=== PATIENT | male | born 1955 | race Caucasian/White ===

== ENCOUNTER 2024-04-18 02:20 | Observation (INO) | payer MEDICARE ==
[~2024-04-18] VITALS: Ht 182.9 cm; Wt 82.1 kg
[~2024-04-18 02:20] MED LIST: LEVO750T68 PO; METO25 PO
--- NOTE | 2024-04-18 02:48 | ERN ---
ED Note History of Present Illness Stated Complaint: SOB Chief Complaint: Shortness of Breath Time Seen by MD: 02:38 Dictation: The patient is a 69-year-old male with no significant past medical history, presented to the emergency department with complaints of progressive dyspnea on exertion over the past 2 months, now worsening at rest and associated with orthopnea and nocturnal dyspnea. He was initially evaluated by primary care physician tess, who perform laboratory testing and an EKG, leading to referral to Cardiology. Due to worsening symptoms the patient has sought emergent evaluation. A chest x-ray was unremarkable, and a COVID-19 testing was negative. He was admitted for further evaluation and management and discharged a day prior to presentation this time During hospitalization, the patient was started on metoprolol 12.5 mg daily for tachycardia and extensive evaluation included CT angiogram ruled out pulmonary embolism. A 2D echo revealed mild left atrial and right ventricular dilation, mild concentric left ventricular hypertrophy, mild global hypokinesis of the left ventricle with an ejection fraction of 45- 50%, and stage I diastolic dysfunction with trace valvular regurgitation. A Lexiscan stress test reported as having possible abnormalities but to correlate clinically. Given persistent dyspnea, pulmonary function testing was performed on hospital day 3, revealing obstructive and possible restrictive lung disease. I was unable to find the PFT results to review. Pulmonology consultation confirmed a new diagnosis of COPD exacerbation, supported by CT findings of air trapping consistent with obstructive airway disease. The patient was managed with bronchodilator therapy and transitioned from 2 L nasal cannula to room air with adequate oxygen saturation. The patient was deemed stable for discharge on Levaquin and a rescue inhaler. He successfully completed a 6 minute walk test prior to discharge. He was instructed to follow up with pulmonology within 1-2 weeks for COPD management and with Cardiology in the same timeframe for further assessment of his mild left ventricular dysfunction. He came back as he was still very short of breath even with minimal exertion and unable to lay flat. At baseline before January patient was very active running marathons. He stated that he quit smoking 20 years ago but prior to that he s moked 1 pack per day for many years. He does not recall any significant infectious process as a trigger for his current progressive symptoms. He does consume alcohol daily at least 4-5 shots. Temperature 98 pulse 107 respirations 20 blood pressure 180/92 with a pulse oximetry of 97% on room air Allergies: Coded Allergies: No Known Allergies (Unverified Allergy, Unknown, 04/12/24) Home Meds Active Scripts Metoprolol Tartrate (Lopressor) 25 Mg Tab, 0.5 TAB PO BID for 30 Days, #30 TAB 0 Refills If the patient experienced any of the following symptoms dizziness or lightheadedness(especially when standing up), extreme weakness or fatigue, blurry vision, fainting or feeling like they may pass out, the medication should be discontinued. 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 Reviewed/Agreed w/PFSH: Yes Review of System Dictation Constitutional: Negative for fever,chills, and weight loss Eyes: Negative for injury, pain,redness, and discharge ENT: Negative for injury,pain or swelling Cardiovascular: Negative for chest pain, palpitations, and edema Respiratory: Positive for shortness of breath, cough with difficulty expectorating, and unclear about wheezing, Abdomen/GI: Negative for abdominal pain, nausea, vomiting, diarrhea, and constipation Back: Negative for injury and pain : Negative for injury, bleeding and discharge MS/Extremity: Negative for injury and deformity Skin: Negative for rash, and discoloration Neuro: Negative for headache, weakness, numbness, tingling, and seizure Psych: Negative for suicide ideation, homicidal ideation, and hallucinations Initial Vital Sign VS Vital Signs Date Time Temp Pulse Resp B/P (MAP) Pulse Ox O2 Delivery O2 Flow Rate FiO2 04/18/24 02:22 98.1 107 20 180/92 6 04/18/24 02:44 Room Air* 0 21 Physical Exam Dictation General: awake, alert, NAD very pleasant male Head/Face: Normocephalic, atraumatic Eyes: PERRL, EOMI, vision at baseline ENT: oral cavity clear, TMs clear, no signs of infection Neck: Trachea midline, supple, no nuchal rigidity Cardiovascular: RRR, normal S1/S2, No MRGs, no JVD Respiratory: Long expiratory phase with end expiratory wheeze with forced expiratory maneuver Abdomen: Soft, non-tender, non-distended, normal bowel sounds, no guarding or rebound. Skin: Warm, dry, normal turgor, no rash MS/Extremity: Pulses equal, no cyanosis, neurovascular intact, FROM Neuro: COAx4, GCS 15, strength 5/5, CN 2-12 intact, normal cerebellar exam, normal gait, Psych: Normal behavior, mood, and affect normal Extremities-trace edema without any palpable cords, Homans sign is negative Results (Laboratory/Radiology) Laboratory/Radiology Laboratory Tests Test 04/18/24 02:40 04/18/24 05:03 04/18/24 06:30 04/18/24 08:46 White Blood Count 11.2 K/uL (4.8-10.8) H Red Blood Count 5.27 MIL/uL (4.50-6.20) Hemoglobin 16.5 g/dL (14.0-18.0) Hematocrit 49.2 % (42-54) Mean Corpuscular Volume 93.4 fL (79-99) Mean Corpuscular Hemoglobin 31.3 pg (27.0-33.0) Mean Corpuscular Hemoglobin Concent 33.5 g/dL (32.0-36.0) Red Cell Distribution Width 12.1 % (11.0-15.5) Platelet Count 253 K/uL (130-400) Mean Platelet Volume 9.5 fL (7.5-10.5) Immature Granulocyte % (Auto) 0.3 % (0-1) Neutrophils (%) (Auto) 76.7 % (40.0-77.0) Lymphocytes (%) (Auto) 11.8 % (21.0-51.0) L Monocytes (%) (Auto) 8.2 % (3.0-13.0) Eosinophils (%) (Auto) 2.5 % (0.0-8.0) Basophils (%) (Auto) 0.5 % (0.0-5.0) Neutrophils # (Auto) 8.6 K/uL (1.8-7.7) H Lymphocytes # (Auto) 1.3 K/uL (1.0-4.8) Monocytes # (Auto) 0.9 K/uL (0.1-1.0) Eosinophils # (Auto) 0.28 K/uL (0.00-0.70) Basophils # (Auto) 0.06 K/uL (0.00-0.20) Absolute Immature Granulocyte (auto 0.03 K/uL (0-1) Nucleated Red Blood Cells 0.0 % (0.0-0.19) Prothrombin Time 10.8 SEC (9.6-11.6) Prothromb Time International Ratio 0.96 (0.85-1.15) Activated Partial Thromboplast Time 28.9 SEC (26.3-35.5) Sodium Level 136 mmol/L (136-145) Potassium Level 4.2 mmol/L (3.5-5.1) Chloride Level 101 mmol/L (101-111) Carbon Dioxide Level 32 mmol/L (21-32) Blood Urea Nitrogen 16 mg/dL (7-18) Creatinine 1.1 mg/dL (0.5-1.3) Glomerular Filtration Rate Calc 72 mL/min (>90) Random Glucose 107 mg/dL (70-105) H Total Calcium 9.0 mg/dL (8.5-10.1) Magnesium Level 1.80 mg/dL (1.80-2.40) B-Type Natriuretic Peptide 26 pg/mL (0-100) Blood Gas Specimen Type Arterial Arterial Blood pH 7.420 (7.350-7.450) Arterial Blood Partial Pressure CO2 40 mmHg (35-48) Arterial Blood Partial Pressure O2 70.4 mmHg (83.0-108.0) L Arterial Blood HCO3 25.1 mmol/L (21.0-28.0) Arterial Blood Oxygen Saturation 94.5 % (94.0-98.0) Arterial Blood Base Excess 0.7 mmol/L (-2.0-3.0) Blood Gas Temperature 37.0 CELSIUS (35.5-37.0) Blood Gas Flow-by 3.00 L/min (0.00-15.00) Blood Gas Vent Mode NC,32 (ROOM AIR) FiO2 32.0 % Blood Gas Specimen Comment RB,RN MANY Influenza Type A Antigen Negative For Type A Influenza Type B Antigen Negative For Type B SARS-CoV-2, RNA, NAAT NEGATIVE SARS CoV-2 Whole Blood Glucose 194 MG/DL (70-110) H Test 04/18/24 11:34 04/18/24 16:37 Whole Blood Glucose 174 MG/DL (70-110) H 185 MG/DL (70-110) H Labs Reviewed?: Yes EKG Comment: Twelve lead EKG done on 04/18/2024 at 3:07 a.m. showed a heart rate of 106, NV interval 148, QRS 91, QT/QTC 333/443 Impression sinus tachycardia with occasional PVCs and left atrial enlargement. No acute ST-T elevations noted. Interpreted by Dr. Garcia ED Course ED Course Orders Procedure Category Date Status Time Cbc With Differential LAB 04/18/24 Complete 02:23 Basic Metabolic Panel LAB 04/18/24 Complete 02:23 B-Type Natriuretic LAB 04/18/24 Complete Peptide 02:23 Pt And Ptt LAB 04/18/24 Complete 02:23 Chest 1vw RAD 04/18/24 Resulted 02:23 12 Lead Ekg Tracing- EKG 04/18/24 Complete Technical 02:47 Magnesium LAB 04/18/24 Complete 02:40 Methylprednisolone PHA 04/18/24 Complete Succ 125mg (Solu-Medr 04:00 [id number]% 4ml PHA 04/18/24 Complete (Mucomyst 10% 4ml) 04:00 Ipratropium/Albuterol PHA 04/18/24 Complete Neb (Duoneb) 04:00 Edm Admit Bridge Order ADM 04/18/24 Transmitted 04:39 Admit Orders ADM 04/18/24 Transmitted 04:40 Arterial Blood Gas RT 04/18/24 Transmitted 04:42 Arterial Blood Gas LAB 04/18/24 Complete 05:03 Influenza Type A & B, LAB 04/18/24 Complete Rapid 06:08 Covid Rna Naat LAB 04/18/24 Complete 06:08 Vital Signs Every 4 CPOE 04/18/24 Transmitted Hours 06:37 I&O Q Shift CPOE 04/18/24 Transmitted 06:37 Activity: Ambulate W/ CPOE 04/18/24 Transmitted Assist 06:37 Heart Healthy Diet DIET 04/18/24 Transmitted Breakfast O2 Order RT 04/18/24 Transmitted 06:37 Albuterol 0.083% PHA 04/18/24 In Process 2.5mg/3ml (Proventil 12:00 Ipratropium 0.5 PHA 04/18/24 In Process Mg/2.5 Ml Inh 12:00 Cbc Without LAB 04/19/24 Verified Differential 04:00 Basic Metabolic Panel LAB 04/19/24 Verified 04:00 Magnesium LAB 04/19/24 Verified 04:00 Phosphorus LAB 04/19/24 Verified 04:00 Enoxaparin Sodium 40 PHA 04/18/24 In Process Mg/0.4 Ml (Lovenox) 09:00 Aspirin 81mg Chew Tab PHA 04/18/24 In Process (Aspirin 81mg Chew 09:00 Acetaminophen 325 Tab PHA 04/18/24 In Process (Tylenol 325mg Tab 07:00 Acetaminophen 650mg PHA 04/18/24 In Process Supp (Tylenol 650mg 07:00 Lactulose 20 Gm/30 Ml PHA 04/18/24 In Process Udcup (Constulose 07:00 Docusate Sodium 100 PHA 04/18/24 In Process Mg Cap (Colace 100mg 07:00 Temazepam 15 Mg Cap PHA 04/18/24 In Process (Restoril 15 Mg Cap) 07:00 Ondansetron 4mg Inj PHA 04/18/24 In Process (Zofran 4mg Inj) 07:00 Labetalol 20mg Syg PHA 04/18/24 In Process (Trandate 20mg Syg) 07:00 Elevate Hob At 30 CPOE 04/18/24 Transmitted Degrees 06:37 Telemetry Monitoring CPOE 04/18/24 Transmitted 06:37 Initiate LUPE 04/18/24 In Process Hyperglycemia Protoco 06:37 Insulin Regular, PHA 04/18/24 In Process Human 3ml (Humulin R 07:30 Methylprednisolone PHA 04/18/24 In Process Succ 125mg (Solu-Medr 12:00 Cbc With Differential LAB 04/19/24 Verified 04:00 Comprehensive LAB 04/19/24 Verified Metabolic Panel 04:00 Famotidine 20mg Vial PHA 04/18/24 In Process (Pepcid 20mg Vial) 09:00 Atorvastatin 40mg PHA 04/18/24 In Process (Lipitor 40mg) 21:00 Metoprolol Tartrate PHA 04/18/24 In Process 25 Mg Tab (Lopressor 09:00 Current Medications Medications (Trade) Dose Ordered Sig/Elvis Route PRN Reason Start Time Stop Time Status Last Admin Dose Admin Acetylcysteine (MUComyst 10% 4ML) 400mg = 4ml ONCE ONCE IH 04/18/24 04:00 04/18/24 04:01 DC 04/18/24 03:56 Albuterol (DUOneb) 1 UDVIAL ONCE ONCE IH 04/18/24 04:00 04/18/24 04:01 DC 04/18/24 03:55 Methylprednisolone Sodium Succinate (Solu-medROL 125MG) 125 mg ONCE ONCE IVP 04/18/24 04:00 04/18/24 04:01 DC 04/18/24 03:40 Vital Signs Date Time Temp Pulse Resp B/P (MAP) Pulse Ox O2 Delivery O2 Flow Rate FiO2 04/18/24 18:10 80 16 134/88 94 Room Air* 0 04/18/24 16:06 96 16 155/99 93 Room Air* 0 04/18/24 13:23 90 18 142/98 94 Room Air* 0 04/18/24 11:40 88 04/18/24 10:37 86 14 147/96 95 Nasal Cannula* 05 1404/18/24 08:11 98.2 84 20 145/94 95 Nasal Cannula* 05 1404/18/24 07:50 97 20 N/A Room Air 04/18/24 05:16 98.6 79 16 154/95 94 Nasal Cannula* 05 1404/18/24 03:56 109 22 04/18/24 03:23 101 17 151/94 88 Room Air* 0 04/18/24 02:44 105 18 147/102 93 Room Air* 0 04/18/24 02:22 98.1 107 20 180/92 6 We will perform diagnostic labs, advanced imaging and administer medications according to the patient's complaint. Once the results are available, will review and personally interpreted the labs to rule out any acute life- threatening emergency the trach require immediate intervention and treatment. I will then re-evaluate the patient after treatment and diagnostic exams have return to determine whether the patient requires any further testing, can safely be discharged home or need further admission to hospital for additional treatment and evaluation. Reviewed labs CBC showed a white count of 11.2 hemoglobin 16.5 BNP 7 showed a BUN and creatinine of 16 and 1.1 brain natriuretic peptide is 26 Chest x-ray showed hyperinflation with a bilateral prominent interstitial markings. I have also reviewed the CT scan of the chest that was done recently which showed patchy ground-glass opacities bilaterally. Lexiscan stress test was also abnormal . Given the persistent symptoms of shortness of breath even with minimal exertion and PND, I recommended that he get readmitted to the hospital for further evaluation including A. Cardiac-may need to consider left heart catheterization. B. from pulmonary standpoint, may benefit from a trial of steroids, Mucomyst lavage with Acapella and consideration for bronch. Patient is agreeable 4:46 a.m. patient accepted by [facility] mid-level provider for the hospitalist group- Dr. Aubrey Saenz Medical Decision Making MDM MDM: Differential diagnosis: Bronchiolitis obliterans, BOOP, chronic microaspiration with history of daily alcohol intake, interstitial lung disease, untreated COPD- no PFTs available for me to review. The other possibility would be superimposed coronary artery disease that may need additional testing including left heart catheterization Rationale: Tests considered and ordered secondary to shared decision making include: labs, ECG and radiology Previous outside records reviewed: Old ER visits. Risk of complication and/or morbidity or mortality of patient management: None Medications-Per medication reconciliation Need for hospitalization: Patient does meet criteria for hospitalization. Need for emergency major/minor surgery: No There are no social concerns with this patient. Prescription drug management Prescriptions will include symptomatic care Patient's prior external medical records from other ER visits were reviewed by me as indicated. Prior testing and results from previous visits were reviewed. Prior tests were taken into account with medical decision making and resource utilization, independent historian/historians were used to obtain complete medical history. I independently interpreted the test that were performed, results were reviewed by me and considered findings on radiology if ordered. Medical management and examination interpretation discussions were had by me with other qualified healthcare professionals as indicated for the patient's care. 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 I pers onally reviewed and interpreted all the diagnostic exams performed in the ER today. The patient will be admitted to the hospital for further treatment and evaluation. Disposition-admit to facility Condition-stable/guarded Course-uncertain at this time Pain status-decreased Assessment-exam unchanged Admission Certification- I certify that the patients status is appropriate and is based on my best clinical judgment and the patient's condition as documented in the medical records Referrals: JOHN MITCHELL (PCP) CHRISTA GARCIA MD Apr 18, 2024 02:48
[2024-04-18 02:52] LABS: BASOPHILS # (AUTO) 0.06 K/uL (0.00-0.20); BASOPHILS % (AUTO) 0.5 % (0.0-5.0); EOSINOPHILS # (AUTO) 0.28 K/uL (0.00-0.70); EOSINOPHILS % (AUTO) 2.5 % (0.0-8.0); HEMATOCRIT 49.2 % (42-54); IMMATURE GRANULOCYTE ABSOLUTE 0.03 K/uL (0-1); LYMPHOCYTES # (AUTO) 1.3 K/uL (1.0-4.8); LYMPHOCYTES % (AUTO) 11.8 % (21.0-51.0); MEAN CORPUSCULAR HEMOGLOBIN 31.3 pg (27.0-33.0); MEAN CORPUSCULAR HGB CONC 33.5 g/dL (32.0-36.0); MEAN CORPUSCULAR VOLUME 93.4 fL (79-99); MONOCYTES # (AUTO) 0.9 K/uL (0.1-1.0); MONOCYTES % (AUTO) 8.2 % (3.0-13.0); NEUTROPHILS # (AUTO) 8.6 K/uL (1.8-7.7); NEUTROPHILS % (AUTO) 76.7 % (40.0-77.0); PLATELET COUNT (AUTO) 253 K/uL (130-400); RED BLOOD CELL COUNT(AUTO) 5.27 MIL/uL (4.50-6.20); RED CELL DISTRIBUTION WIDTH 12.1 % (11.0-15.5); WHITE BLOOD COUNT (AUTO) 11.2 K/uL (4.8-10.8)
[2024-04-18] MEDS ORDERED: METO25TA6 PO (02:58)
[2024-04-18] MEDS ORDERED: LEVO750T90 PO (02:58)
[2024-04-18 02:59] LABS: CREATININE 1.1 mg/dL (0.5-1.3); POTASSIUM 4.2 mmol/L (3.5-5.1)
[2024-04-18 03:02] LABS: INR 0.96 (0.85-1.15); PROTHROMBIN TIME 10.8 SEC (9.6-11.6)
[2024-04-18 03:04] LABS: PARTIAL THROMBOPLASTIN TIME 28.9 SEC (26.3-35.5)
[2024-04-18 03:17] LABS: B-TYPE NATRIURETIC PEPTIDE 26 pg/mL (0-100)
[2024-04-18] MEDS: Solu-medROL 125MG VIAL IVP ONE (03:40)
[2024-04-18] MEDS: IpraTROPium/alBUTERol SULFATE 3 ML SOLUTION IH ONE (03:55)
[2024-04-18 03:56] VITALS: PULSE 109; RESP 22
[2024-04-18] MEDS: acetylCYSTeine10% 4ML VIAL IH ONE (03:56)
[2024-04-18 05:04] LABS: ABG BASE EXCESS 0.7 mmol/L (-2.0-3.0); ABG HCO3 25.1 mmol/L (21.0-28.0); ABG OXYGEN SATURATION 94.5 % (94.0-98.0); ABG PCO2 40 mmHg (35-48); DEVICE COMMENT RB,RN MANY; PO2, ARTERIAL BG 70.4 mmHg (83.0-108.0); VENT MODE, BG NC,32 (ROOM AIR)
--- NOTE | 2024-04-18 05:31 | HP ---
[facility] HISTORY AND PHYSICAL Date of Service: Apr 18, 2024 Time of Service: 05:31 JOHN MITCHELL (PCP) Supervising physicians: Dr. Saenz and Dr. Trina Crowley HISTORY OF PRESENT ILLNESS: Mr. Dixon 69-year-old male with no significant past medical history of COPD, hypotension, sinusitis, tachycardia, elevated D-dimers, smoker, EtOH who presented to the emergency department for evaluation of progressive dyspnea on exertion over the past 2 months, now worsening at rest and associated with orthopnea and nocturnal dyspnea. He was initially evaluated by primary care physician tess, who perform laboratory testing and an EKG, leading to referral to Cardiology. Due to worsening symptoms the patient has sought emergent evaluation. On arrival, he was hemodynamically stable aside from tachycardia with a heart rate of 114 and hypertension with a blood pressure of 158/112, with an oxygen saturation of 93% on room air. A chest x-ray was unremarkable, and a COVID-19 testing was negative. He was admitted for further evaluation and management. During prior hospitalization, the patient was started on metoprolol 12.5 mg daily for tachycardia and received symptomatic treatment for pain, fever, cough, nausea, and vomiting as needed. A CT angiogram ruled out pulmonary embolism. A 2D echo revealed mild left atrial and right ventricular dilation, mild concentric left ventricular hypertrophy, mild global hypokinesis of the left ventricle with an ejection fraction of 45-50%, and stage I diastolic dysfunction with trace valvular regurgitation. A Lexiscan stress test was unremarkable. Given persistent dyspnea, pulmonary function testing was performed on hospital day 3, revealing obstructive and possible restrictive lung disease. Pulmonology consultation confirmed a new diagnosis of COPD exacerbation, supported by CT findings of air trapping consistent with obstructive airway disease. The patient was managed with bronchodilator therapy and transitioned from 2 L nasal cannula to room air with adequate oxygen saturation. The patient was deemed stable for discharge on Levaquin and a rescue inhaler. He successfully completed a 6 minute walk test prior to discharge. He was instructed to follow up with pulmonology within 1-2 weeks for COPD management and with Cardiology in the same timeframe for further assessment of his mild left ventricular dysfunction. EKG done on 04/18/2024 at 3:07 a.m. showed a heart rate of 106, Impression sinus tachycardia with occasional PVCs and left atrial enlargement. No acute ST-T elevations noted. labs CBC showed a white count of 11.2 hemoglobin 16.5 BNP 7 showed a BUN and creatinine of 16 and 1.1 brain natriuretic peptide is 26. Chest x-ray showed hyperinflation with a bilateral prominent interstitial markings. CT scan of the chest that was done recently which showed patchy ground-glass opacities bilaterally. Lexiscan stress test was also abnormal. ED provider request patient be admitted with the diagnosis of bronchiolitis obliterans organizing pneumonia, COPD, Ground glass opacity present on imaging of lung. Assess the patient at bedside in room number ED 20. Patient was asleep, breathing was even, unlabored, in no distress. I informed patient of labs, diagnostics, plan of care. He verbalizes understanding and is in agreement with the plan. Plan and assessment are listed below. REVIEW OF SYSTEMS 12-point ROS reviewed with the patient. All pertinent positives mentioned above. Otherwise negative, noncontributory, or non-pertinent. Past Medical History: COPD, Hypertension, Sinusitis, tachycardia, elevated D- dimer Surgical History: None Family History: Negative Social History: Smokers, ETOH Coded Allergies: No Known Allergies (Unverified Allergy, Unknown, 04/12/24) PHYSICAL EXAM GENERAL APPEARANCE: The patient is awake, alert, and oriented, in no acute cardiopulmonary distress. NEUROLOGICAL: Cranial nerves II-XII grossly intact. Motor is 5/5 in bilateral upper and lower extremities proximal to distal. No sensory deficits. HEENT: Face is symmetric. Pupils are equal and reactive. Extraocular movements are intact. NECK: Supple. No JVD. No thyromegaly. No submental, submandibular, pre- /postauricular, occipital or supraclavicular lymphadenopathy. CHEST: Normal chest expansion. No Telemetry. LUNGS: Diminished better. Absence of any rales, rhonchi or any wheezing. CARDIOVASCULAR: Regular. S1 and S2 normal. No appreciable rubs, murmurs or gallops. ABDOMEN: Soft, nontender, and nondistended. There is no rebound, voluntary guarding, or rigidity. : Deferred. No Aguilar. EXTREMITIES: Non-edematous and not cyanotic. No clubbing. Good capillary ref ill. SKIN: No skin breakdown. Vital Sign (Last 24 Hours) 04/18/24 05:16 Temp 98.6 Pulse 79 Resp 16 B/P (MAP) 154/95 Pulse Ox 94 O2 Delivery Nasal Cannula* O2 Flow Rate 2 FiO2 28 LABS: Laboratory: Test 04/18/24 05:03 04/18/24 02:40 Range/Units Blood Gas Specimen Type Arterial Arterial Blood pH 7.420 7.350-7.450 Arterial Blood Partial Pressure CO2 40 35-48 mmHg Arterial Blood Partial Pressure O2 70.4 L 83.0-108.0 mmHg Arterial Blood HCO3 25.1 21.0-28.0 mmol/L Arterial Blood Oxygen Saturation 94.5 94.0-98.0 % Arterial Blood Base Excess 0.7 -2.0-3.0 mmol/L Blood Gas Temperature 37.0 35.5-37.0 CELSIUS Blood Gas Flow-by 3.00 0.00-15.00 L/min Blood Gas Vent Mode NC,32 ROOM AIR FiO2 32.0 % Blood Gas Specimen Comment RB,RN MANY White Blood Count 11.2 H 4.8-10.8 K/uL Red Blood Count 5.27 4.50-6.20 MIL/uL Hemoglobin 16.5 14.0-18.0 g/dL Hematocrit 49.2 42-54 % Mean Corpuscular Volume 93.4 79-99 fL Mean Corpuscular Hemoglobin 31.3 27.0-33.0 pg Mean Corpuscular Hemoglobin Concent 33.5 32.0-36.0 g/dL Red Cell Distribution Width 12.1 11.0-15.5 % Platelet Count 253 130-400 K/uL Mean Platelet Volume 9.5 7.5-10.5 fL Immature Granulocyte % (Auto) 0.3 0-1 % Neutrophils (%) (Auto) 76.7 40.0-77.0 % Lymphocytes (%) (Auto) 11.8 L 21.0-51.0 % Monocytes (%) (Auto) 8.2 3.0-13.0 % Eosinophils (%) (Auto) 2.5 0.0-8.0 % Basophils (%) (Auto) 0.5 0.0-5.0 % Neutrophils # (Auto) 8.6 H 1.8-7.7 K/uL Lymphocytes # (Auto) 1.3 1.0-4.8 K/uL Monocytes # (Auto) 0.9 0.1-1.0 K/uL Eosinophils # (Auto) 0.28 0.00-0.70 K/uL Basophils # (Auto) 0.06 0.00-0.20 K/uL Absolute Immature Granulocyte (auto 0.03 0-1 K/uL Nucleated Red Blood Cells 0.0 0.0-0.19 % Prothrombin Time 10.8 9.6-11.6 SEC Prothromb Time International Ratio 0.96 0.85-1.15 Activated Partial Thromboplast Time 28.9 26.3-35.5 SEC Sodium Level 136 136-145 mmol/L Potassium Level 4.2 3.5-5.1 mmol/L Chloride Level 101 101-111 mmol/L Carbon Dioxide Level 32 21-32 mmol/L Blood Urea Nitrogen 16 7-18 mg/dL Creatinine 1.1 0.5-1.3 mg/dL Glomerular Filtration Rate Calc 72 >90 mL/min Random Glucose 107 H 70-105 mg/dL Total Calcium 9.0 8.5-10.1 mg/dL B-Type Natriuretic Peptide 26 0-100 pg/mL DIAGNOSTICS / RADIOLOGY: [ ] ASSESSMENT: Acute hypoxemic respiratory failure, POA COPD with acute exacerbation, POA Leukocytosis Hyperglycemia Tachycardia Uncontrolled hypertension Chronic problem list: COPD, hypertension, sinusitis, tachycardia, elevated D- dimer PLAN: Admit to medical floor with telemetry monitoring. Monitor respiratory status closely. Continue oxygen therapy as needed. Titrate oxygen p.r.n. to keep SpO2 equal to greater than 92%. Albuterol and Atrovent scheduled. RT to provide IS and education on use. Robitussin DM as needed. Solu-Medrol IV daily. Continue antibiotic therapy: Doxycycline IV and Rocephin IV. P.r.n. medications for: Pain management, fever, hypertension, nausea, vomiting, constipation Blood pressure checks every4 hours and as needed. Reconcile home medication: Metoprolol 25 mg p.o. daily. Hold home medication levofloxacin. Monitor renal and liver function. Monitor electrolytes and treat accordingly. A.m. labs: CBC, BNP, Mag, phos, TSH, A1c. GI and DVT prophylaxis: Pepcid and Lovenox. MARTIN JACOBP Apr 18, 2024 05:31
[2024-04-18] MEDS ORDERED: ondanSETRON 4MG INJ IVP PRN (07:00)
[2024-04-18] MEDS ORDERED: acetaMINOPHEN 325 MG TAB PO PRN (07:00)
[2024-04-18] MEDS ORDERED: acetaMINOPHEN 650 MG SUPPOSITORY RC PRN (07:00)
[2024-04-18] MEDS ORDERED: LAbetaLOL 20MG SYG IV PRN (07:00)
[2024-04-18] MEDS ORDERED: LACTULOSE 20 GM/30 ML UDCUP PO PRN (07:00)
[2024-04-18] MEDS ORDERED: TEMAZepam 15 MG CAPSULE PO PRN (07:00)
[2024-04-18] MEDS ORDERED: doCUSate SODIUM 100 MG CAP PO PRN (07:00)
[2024-04-18 07:04] LABS: SARS-CoV-2, RNA, NAAT NEGATIVE SARS CoV-2 (NEGATIVE)
[2024-04-18 07:05] LABS: MAGNESIUM 1.8 mg/dL (1.80-2.40)
[2024-04-18 07:12] LABS: INFLUENZA TYPE A Negative For Type A (NEGATIVE); INFLUENZA TYPE B Negative For Type B (NEGATIVE)
[2024-04-18 07:50] VITALS: PULSE 97; RESP 20; O2SAT 95
--- NOTE | 2024-04-18 08:28 | HMCIMG ---
Exam Type: CHEST 1VW Clinical Information: SOB Comparison: None Findings: The lungs are clear of infiltrates. The heart is normal in size. The bony and soft tissue structures of the chest are unremarkable. Impression: Clear lungs.
[2024-04-18] MEDS: ENOXAPARIN SODIUM 40 MG/0.4 ML SYRINGE SQ SCH (08:41)
[2024-04-18] MEDS: ASPIRIN 81MG CHEW TAB PO SCH (08:41)
[2024-04-18] MEDS: INSULIN humuLIN R 100 UNIT/ML 3ML SQ SCH (08:50)
[2024-04-18] MEDS: FAMOTIDINE 20MG VIAL IV SCH (08:56)
[2024-04-18] MEDS: metoPROLOL tartRATE 25 MG TAB PO SCH (08:56)
--- NOTE | 2024-04-18 09:22 | EKG ---
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
--- NOTE | 2024-04-18 11:20 | NUR ---
PATIENT UP AD LYNETTE WITH NO SIGNS OF RISKS FOR FALL. REQUESTED TO [facility].
[2024-04-18] MEDS: Solu-medROL 125MG VIAL IVP SCH (11:30)
[2024-04-18 11:40] VITALS: PULSE 88; RESP 22
[2024-04-18] MEDS: ALBUTEROL 0.083% 2.5 MG/3 ML INH IH SCH (11:51)
[2024-04-18] MEDS: IpraTROPium 0.5 MG/2.5 ML INH IH SCH (11:51)
[2024-04-18 19:58] VITALS: PULSE 95; RESP 20; O2SAT 95
[2024-04-18] MEDS: atorVAStatin 40 MG TABLET PO SCH (21:13)
[2024-04-18 23:58] VITALS: PULSE 89; RESP 18
[2024-04-19] VITALS (9 sets, daily range): BP systolic 117–152; BP diastolic 60–101; PULSE 84–115; RESP 16–22; TEMP 97.4–98.5; O2SAT 92–95
[2024-04-19 05:00] LABS: BASOPHILS # (AUTO) 0.01 K/uL (0.00-0.20); BASOPHILS % (AUTO) 0.1 % (0.0-5.0); HEMATOCRIT 44.1 % (42-54); IMMATURE GRANULOCYTE ABSOLUTE 0.06 K/uL (0-1); LYMPHOCYTES # (AUTO) 0.8 K/uL (1.0-4.8); LYMPHOCYTES % (AUTO) 6.4 % (21.0-51.0); MEAN CORPUSCULAR HEMOGLOBIN 30.4 pg (27.0-33.0); MEAN CORPUSCULAR HGB CONC 32.9 g/dL (32.0-36.0); MEAN CORPUSCULAR VOLUME 92.5 fL (79-99); MONOCYTES # (AUTO) 0.3 K/uL (0.1-1.0); MONOCYTES % (AUTO) 2.3 % (3.0-13.0); NEUTROPHILS % (AUTO) 90.7 % (40.0-77.0); PLATELET COUNT (AUTO) 256 K/uL (130-400); RED BLOOD CELL COUNT(AUTO) 4.77 MIL/uL (4.50-6.20); WHITE BLOOD COUNT (AUTO) 13.2 K/uL (4.8-10.8)
[2024-04-19 05:26] LABS: ALBUMIN 2.8 g/dL (3.5-5.0); BILIRUBIN,TOTAL 0.3 mg/dL (0.2-1.0); CREATININE 1.1 mg/dL (0.5-1.3); MAGNESIUM 1.8 mg/dL (1.80-2.40); PHOSPHORUS 2.7 mg/dL (2.5-4.9); POTASSIUM 4.3 mmol/L (3.5-5.1); TOTAL PROTEIN, SERUM 7.5 g/dL (6.0-8.3)
[2024-04-19] MEDS ORDERED: MAGNESIUM 2GM PREMIX 50ML 50 ML IV PRN (09:30)
[2024-04-19] MEDS: Solu-medROL 40MG VIAL IVP SCH (12:27)
--- NOTE | 2024-04-19 17:19 | DS ---
Discharge Summary Hospital Course Summary: Mr. Dixon 69-year-old male with no significant past medical history of COPD, hypotension, sinusitis, tachycardia, elevated D-dimers, smoker, EtOH who presented to the emergency department for evaluation of progressive dyspnea on exertion over the past 2 months, now worsening at rest and associated with o rthopnea and nocturnal dyspnea. He was initially evaluated by primary care physician tess, who perform laboratory testing and an EKG, leading to referral to Cardiology. Due to worsening symptoms the patient has sought emergent evaluation. On arrival, he was hemodynamically stable aside from tachycardia with a heart rate of 114 and hypertension with a blood pressure of 158/112, with an oxygen saturation of 93% on room air. A chest x-ray was unremarkable, and a COVID-19 testing was negative. He was admitted for further evaluation and management. During prior hospitalization, the patient was started on metoprolol 12.5 mg daily for tachycardia and received symptomatic treatment for pain, fever, cough, nausea, and vomiting as needed. A CT angiogram ruled out pulmonary embolism. A 2D echo revealed mild left atrial and right ventricular dilation, mild concentric left ventricular hypertrophy, mild global hypokinesis of the left ventricle with an ejection fraction of 45-50%, and stage I diastolic dysfunction with trace valvular regurgitation. A Lexiscan stress test was unremarkable. Given persistent dyspnea, pulmonary function testing was performed on hospital day 3, revealing obstructive and possible restrictive lung disease. Pulmonology consultation confirmed a new diagnosis of COPD exacerbation, supported by CT findings of air trapping consistent with obstructive airway disease. The patient was managed with bronchodilator therapy and transitioned from 2 L nasal cannula to room air with adequate oxygen saturation. The patient was deemed stable for discharge on Levaquin and a rescue inhaler. He successfully completed a 6 minute walk test prior to discharge. He was instructed to follow up with pulmonology within 1-2 weeks for COPD management and with Cardiology in the same timeframe for further assessment of his mild left ventricular dysfunction. EKG done on 04/18/2024 at 3:07 a.m. showed a heart rate of 106, Impression sinus tachycardia with occasional PVCs and left atrial enlargement. No acute ST-T zenobia vations noted. labs CBC showed a white count of 13 hemoglobin 16.5 BNP 7 showed a BUN and creatinine of 16 and 1.1 brain natriuretic peptide is 26. Chest x-ray showed hyperinflation with a bilateral prominent interstitial markings. CT scan of the chest that was done recently which showed patchy ground-glass opacities bilaterally. Lexiscan stress test was also abnormal. Patient got Solumedrol , Albuterol nebuliser , ipatropium inhaler during the stay in the hospital. Patient felt better immediately ,Patient is changed to observation status eventually . patient also mentioned about his improvement in symptoms in a single day , patienjt was educated regarding the use of inhaler and nebuliser. patient is discharged with Prednisone , albuterol nebuliser , pro air inhaler , ipatropium inhaler , Levaquin . patient is stable to get discharged Procedure(s): PATIENT: RALPH DIXON MR#: [id number] : 1955 SEX: M AGE: 69 LOCATION: [facility] ORDER 3 STATUS: ADM IN REPORT#: [id number] SERVICE 2 REASON: SOB ORDERING PHYSICIAN: CHRISTA CRUZ MD PROCEDURE: CXR1VW - CHEST 1VW Exam Type: CHEST 1VW Clinical Information: SOB Comparison: None Findings: The lungs are clear of infiltrates. The heart is normal in size. The bony and soft tissue structures of the chest are unremarkable. Impression: Clear lungs. DICTATED BY: STACEY VEGA MD DATE: 04/18/24823 ELECTRONICALLY SIGNED BY: STACEY VEGA MD DATE: 04/18/24827 Assessment/Plan: ASSESSMENT: Acute hypoxemic respiratory failure, POA COPD with acute exacerbation, POA Leukocytosis Hyperglycemia Tachycardia Uncontrolled hypertension Chronic problem list: COPD, hypertension, sinusitis, tachycardia, elevated D- dimer Discharge Instructions: please take medications as prescribed Use a rescue inhaler for sudden shortness of breath Rinse mouth after using steroid inhalers to prevent infections Avoid exposure to smoke, dust, strong odors, pollution and cold air Use a mask when around he returns Use a humidifier if dry ear worsened symptoms Come back to the ER if you have Increased shortness of breath and that does not improve with medication Chest pain or severe coughing Blue lips or fingertips Confusion or drowsiness Fever, chills or increased mucus production Home Medications: Active Scripts Levofloxacin (Levaquin 750Mg Tabs) 750 Mg Tablet, 1 TAB PO DAILY for 7 Days, #7 TAB 0 Refills Prov:MICHAEL BLACK MD 04/19/24 Prednisone (Prednisone) 20 Mg Tablet, 1 TAB PO DAILY for 3 Days, #3 TAB 0 Refills Prov:MICHAEL BLACK MD 04/19/24 Ipratropium [place]arks (Atrovent Neb Soln) 0.2 Mg/Ml (0.02 %) Soln, 0.5 MG IH [id number], #2.5 ML Prov:MICHAEL BLACK MD 04/19/24 Albuterol Sulfate (Albuterol Sulfate) 2.5 Mg/3 Ml (0.083 %) Vial.neb, 2.5 MG IH [id number], #1 INH Prov:MICHAEL BLACK MD 04/19/24 Reported Medications Metoprolol Tartrate (Metoprolol Tartrate) 25 Mg Tablet, 1 TAB PO DAILY for 30 Days, #60 TAB 0 Refills 04/18/24 Discontinued Reported Medications Levofloxacin (Levofloxacin) 750 Mg Tablet, 1 TAB PO DAILY for 7 Days, #7 TAB 0 Refills 04/18/24 New Medications: Levofloxacin (Levaquin 750Mg Tabs) 750 Mg Tablet 1 TAB PO DAILY for 7 Days, #7 TAB 0 Refills Prednisone (Prednisone) 20 Mg Tablet 1 TAB PO DAILY for 3 Days, #3 TAB 0 Refills Albuterol Sulfate (Albuterol Sulfate) 2.5 Mg/3 Ml (0.083 %) Vial.neb 2.5 MG IH [id number], #1 INH Ipratropium Starks (Atrovent Neb Soln) 0.2 Mg/Ml (0.02 %) Soln 0.5 MG IH [id number], #2.5 ML Continued Medications: Metoprolol Tartrate (Metoprolol Tartrate) 25 Mg Tablet 1 TAB PO DAILY for 30 Days, #60 TAB 0 Refills Discontinued Medications: Levofloxacin (Levofloxacin) 750 Mg Tablet 1 TAB PO DAILY for 7 Days, #7 TAB 0 Refills Time spent arranging discharge: 1-30 minutes ATTESTATION BY PHYSICIAN I have seen and examined the patient. I reviewed the documentation, medical decision making, and treatment plan as noted by the mid-level provider above. I agree with the findings and plan of care. Lorena Crowley MD, KEERTI K MD Apr 19, 2024 17:19
[2024-04-19] MEDS ORDERED: IPRNEB IH (17:27)
[2024-04-19] MEDS ORDERED: ALBU2.5V2 IH (17:27)
[2024-04-19] MEDS ORDERED: LEVO750T68 PO (17:27)
[2024-04-19] MEDS ORDERED: PRED20TA3 PO (17:27)
--- NOTE | 2024-04-19 17:54 | NUR ---
Discharge Patient been discharge home, all discharge instructions given to patient, all questions answered, no concerns at this time, aware medications sent to electronically to his pharmacy of choice, pending transportation to pick him up at this time.
--- NOTE | 2024-04-19 20:00 | NUR ---
DISCHARGE PATIENT FRIEND HERE TO SPECTROGRAPHER PATIENT, ALL BELONGINGS TAKEN WITH PATIENT. NO DISTRESS NOTED.
== END 2024-04-19 20:00 | disposition home or self-care (01) ==
LOC: EDH 02:20 → EDHIP 04:40 → INTOOBSV 04:40 → 4BH 22:43
PROVIDERS: ADMIT Internal Medicine; ATTEND Internal Medicine
DX: J96.01 Acute respiratory failure with hypoxia (principal); Z20.822 Contact with and (suspected) exposure to COVID-19; J44.1 Chronic obstructive pulmonary disease with (acute) exacerbation; D72.829 Elevated white blood cell count, unspecified; R73.9 Hyperglycemia, unspecified; R00.0 Tachycardia, unspecified; J84.89 Other specified interstitial pulmonary diseases; I49.3 Ventricular premature depolarization; I11.9 Hypertensive heart disease without heart failure; Z79.899 Other long term (current) drug therapy
CPT/HCPCS: 96374; 96376 ×2; 96372; 96375; 99285; 83735 ×2; 80048; 82803; 83880; 85025 ×2; 85610; 85730; 87804 ×2; 82948 ×7; 36415 ×2; 87635; 71045; 93005; 36600; 94664; 84100; 80053; 94640; 84145; G0378 ×5; J3490 ×3; J2919 ×9; J1650 ×2; J7608; J1815 ×2; J3475

== ENCOUNTER → 2024-05-05 | Outpatient (CLI) | payer MEDICARE ==
[~2024-05-05] MED LIST changes: +ALBU2.5V2 IH; +IOHEXOL 350 MG/ML 100ML INFUS..BTL IV ONE; +IPRNEB IH; -METO25 PO; +METO25TA6 PO; +PRED20TA3 PO; +metoPROLOL tartRATE 1 MG/ML 5ML VIAL IV ONE
--- NOTE | 2024-05-05 11:31 | HMCIMG ---
CT CARDIAC ANGIO W/CONT. CCTA REASON: OTHER FORMS OF DYSPNEA COMPARISON: None TECHNIQUE: Images are obtained through the heart in the axial plane before and during bolus IV contrast infusion, 100 cc Omnipaque 350. 2-D and 3-D multiplanar reconstruction images were then performed. The injection had to be repeated once due to motion artifact on the first sequence, total contrast volume was 200 cc. FINDINGS: This dictation is for the noncardiac findings only. Cardiac and coronary artery findings are reported separately. Visualized portions of the lungs are clear. There is normal-appearing pulmonary interstitium. There is no hilar or mediastinal lymphadenopathy. Chest wall structures appear unremarkable. IMPRESSION: 1. Unremarkable noncardiac portions of CT cardiac angiography.
--- NOTE | 2024-05-09 14:05 | CARDIOLOGY ---
RAD REPORT: CORNCRESTLINE CT ANGIO RADIOLOGY REPORT: CORONARY CT ANGIOGRAPHY DATE: May 09, 2024 QUALITY: Excellent CLINICAL HISTORY AND INDICATION: [ family h/o CAD, CARDONA ] TECHNIQUE: After obtaining a preliminary security orderly image, contrast imaging performed on an [employer] [id number]-cmcal scanner. A dedicated, limited window, coronary imaging protocol was used, with single breath-hold, retrospective ECG gating, and automated arrhythmia rejection. 100 cc of low osmolar contrast agent: Omnipaque 350 was delivered via a 18-gauge IV catheter in the right antecubital fossa, using a power injector and followed by 60 cc of normal saline bolus as a chaser. Collimated images were reformatted at 0.5 mm intervals, and sent to an offline independent workstation for interpretation, using 3D anatomic reconstructions: Curved multiplanar reconstructions, maximum intensity projections, and multiplanar imaging. 20 mg IV metoprolol was administered prior to scanning. 0.8 mg SL nitroglycerin was given. CORONARY ARTERY DESCRIPTIONS: The coronary arteries arise in normal position. Left main coronary artery: Normal caliber vessel that bifurcates into the LAD and LCx. No stenosis. Left anterior descending coronary artery: Normal caliber vessel and gives rise to diagonal and septal branches. No stenosis. Left circumflex coronary artery: Normal caliber, nondominant and gives rise to two OM branches. No stenosis. Right coronary artery: Large, dominant vessel giving rise to the PL and PDA branches. No stenosis. CAD-RADs: 0, absence of CAD. Thoracic Aorta: Normal diameter. Kisha Carranza MD Cardiovascular Disease [facility] KISHA CARRANZA MD May 09, 2024 14:05
== END | disposition home or self-care (01) ==
LOC: RAH 09:41 → EDBD 10:00 → EDUNIT# 10:00
PROVIDERS: ATTEND Student in an Organized Health Care Education/Training Program
DX: R07.9 Chest pain, unspecified (principal); R06.09 Other forms of dyspnea; Z82.49 Family history of ischemic heart disease and other diseases of the circulatory system
CPT/HCPCS: 75574; J3490 ×2; Q9967